=== PATIENT | female | born 1960 | race Caucasian/White ===

== ENCOUNTER 2017-02-15 17:21 | Observation (INO) | payer OTHER ==
[2017-02-15 18:23] LABS: Hematocrit 42 % (35-47); Hemoglobin 13.8 g/dl (12.0-16.0); Mean Corpuscular HGB Conc 33 g/dl (31-36); Mean Corpuscular Hemoglobin 29 pg (27-31); Mean Corpuscular Volume 90 fL (80-97); Mean Platelet Volume 9 um3 (7.4-10.4); Red Blood Count 4.69 10^6/ul (4.0-5.4); Red Cell Distribution Width 14 % (10.5-15); White Blood Count 12.9 10^3/ul (3.5-10.8)
[2017-02-15 18:46] LABS: Albumin 3.9 g/dL (3.2-5.2); BUN/Creatinine Ratio 16.7 (8-20); Calcium 9.2 mg/dL (8.6-10.3); EGFR African American 67.3 (>60); EGFR Non-African American 52.3 (>60); Globulin 3.5 g/dL (2-4); Potassium 3.7 mmol/L (3.5-5.0); Total Bilirubin 0.5 mg/dL (0.2-1.0); Total Protein 7.4 g/dL (6.4-8.9)
[2017-02-15 18:49] LABS: Troponin I 0.14 ng/mL (<0.04)
[2017-02-15] MEDS ORDERED: Pantoprazole IV* 40 MG IV ONE (18:53)
[2017-02-15] MEDS ORDERED: Sucralfate TAB* 1 GM PO ONE (18:53)
--- NOTE | 2017-02-15 19:16 | RAD ---
HISTORY: Palpitation COMPARISONS: None VIEWS: 2: Frontal dual-energy and lateral views of the chest. FINDINGS: CARDIOMEDIASTINAL SILHOUETTE: The cardiomediastinal silhouette is normal. ELI: The eli are normal. PLEURA: The costophrenic angles are sharp. No pleural abnormalities are noted. LUNG PARENCHYMA: The lungs are clear. ABDOMEN: The upper abdomen is clear. There is no subphrenic gas. BONES AND SOFT TISSUES: Degenerative changes are noted along the spine. OTHER: None. IMPRESSION: NO ACTIVE CARDIOPULMONARY DISEASE.
[2017-02-15 19:38] LABS: TSH (Thyroid Stimulating Horm) 1.54 mcIU/mL (0.34-5.60)
[2017-02-15] MEDS ORDERED: Acetaminophen TAB* 325 MG PO PRN (20:42)
[2017-02-15] MEDS ORDERED: Ondansetron INJ* 2 MG/ML VIAL IV PRN (20:42)
[2017-02-15] MEDS ORDERED: Al Hydrox/Mg Hydrox/Simet LIQ* 30 ML UDC PO PRN (20:42)
[2017-02-15] MEDS ORDERED: Nicotine Inhaler* 10 MG AMP INH PRN (20:55)
[2017-02-15] MEDS ORDERED: Mouth Piece, Nicotine* 1 EACH CARTRIDGE INH PRN (20:55)
[2017-02-15] MEDS ORDERED: Aspirin TAB* 325 MG PO ONE (20:56)
[2017-02-15] MEDS ORDERED: Potassium Chlor TAB* 20 MEQ TAB.ER PO ONE (21:02)
[2017-02-15] MEDS: Heparin VIAL(*) 5000 UNITS/ML VIAL (FIVE THOUSAND) SUBCUT SCH (21:38)
--- NOTE | 2017-02-15 22:08 | ED ---
Melita Calvert Alfonso, scribed for Luis Small MD on 02/15/17 at 1805 . HPI Cardiac - HPI Summary HPI Summary: This patient is a 56 year old female BIBA to [facility] for palpitations around 1430 today. She reports 4 episodes of her "heart racing" while at work today. The most recent episode lasted approximately 2 hours. She denies any pain. Symptoms aggravated by nothing and alleviated by spontaneous resolution. The patient reports diaphoresis and "flushed skin." Patient reports consuming less caffeine over the last few days. - History of Current Complaint Chief Complaint: EDGeneral Stated Complaint: SVT Time Seen by Provider: 02/15/17 17:34 Hx Obtained From: Patient Onset/Duration: Started Hours Ago - Earlier today, Still Present Timing: Intermittent, Lasting Hours - approximately 2 hours Initial Severity: Mild Current Severity: Mild Pain Intensity: 0 Pain Scale Used: 0-10 Numeric Character: Fast - Palpatations Aggravating Factor(s): Nothing Alleviating Factor(s): Spontaneous Resolution Associated Signs and Symptoms: Positive: Diaphoresis, Other: - Positive " flushed skin" - Allergy/Home Medications Allergies/Adverse Reactions: Allergies Allergy/AdvReac Type Severity Reaction Status Date / Time No Known Allergies Allergy Verified 07/26/15 11:13 PMH/Surg Hx/FS Hx/Imm Hx Cardiovascular History: Reports: Hx Hypertension - Surgical History Surgery Procedure, Year, and Place: 3 c-sections. screw placed in 2nd lft toe december 2014 Infectious Disease History: No Infectious Disease History: Denies: Traveled Outside the [place] in Last 30 Days - Family History Known Family History: Negative: Diabetes - Social History Alcohol Use: Occasionally Substance Use Type: Reports: None Smoking Status (MU): Heavy Every Day Tobacco Smoker Type: Cigarettes Review of Systems Positive: Skin Diaphoresis Positive: Palpitations Negative: Arthralgia - Denies any pain Positive: Other - Positive "flushed skin" All Other Systems Reviewed And Are Negative: Yes Physical Exam Triage Information Reviewed: Yes Vital Signs On Initial Exam: Initial Vitals Temp Pulse Resp BP Pulse Ox 97.7 F 98 18 145/72 98 02/15/17 17:26 02/15/17 17:26 02/15/17 17:26 02/15/17 17:26 02/15/17 17:26 Vital Signs Reviewed: Yes Appearance: Positive: Well-Appearing, No Pain Distress, Obese Skin: Positive: Warm, Skin Color Reflects Adequate Perfusion, Dry Head/Face: Positive: Normal Head/Face Inspection Eyes: Positive: Normal ENT: Positive: Normal ENT inspection Neck: Positive: Supple, Nontender Respiratory/Lung Sounds: Positive: Clear to Auscultation, Breath Sounds Present Cardiovascular: Positive: RRR Abdomen Description: Positive: Nontender, Soft Bowel Sounds: Positive: Present Musculoskeletal: Positive: Normal Neurological: Positive: Normal, Sensory/Motor Intact, Alert, Oriented to Person Place, Time, CN Intact II-III Psychiatric: Positive: Normal - [place]ana Coma Scale Coma Scale Total: 15 Diagnostics - Vital Signs Vital Signs Temp Pulse Resp BP Pulse Ox 02/15/17 17:26 97.7 F 98 18 145/72 98 - Laboratory Lab Results: Lab Results 02/15/17 02/15/17 02/15/17 Range/Units 18:15 18:15 18:15 WBC 12.9 H (3.5-10.8) 10^3/ul RBC 4.69 (4.0-5.4) 10^6/ul Hgb 13.8 (12.0-16.0) g/dl Hct 42 (35-47) % MCV 90 (80-97) fL MCH 29 (27-31) pg MCHC 33 (31-36) g/dl RDW 14 (10.5-15) % Plt Count 272 (150-450) 10^3/ul MPV 9 (7.4-10.4) um3 Neut % (Auto) 78.3 (38-83) % Lymph % (Auto) 12.4 L (25-47) % [place] % (Auto) 6.2 (1-9) % Eos % (Auto) 1.0 (0-6) % Baso % (Auto) 2.1 H (0-2) % Absolute Neuts (auto) 10.1 H (1.5-7.7) 10^3/ul Absolute Lymphs (auto) 1.6 (1.0-4.8) 10^3/ul Absolute Monos (auto) 0.8 (0-0.8) 10^3/ul Absolute Eos (auto) 0.1 (0-0.6) 10^3/ul Absolute Basos (auto) 0.3 H (0-0.2) 10^3/ul Absolute Nucleated RBC 0.01 10^3/ul Nucleated RBC % 0.1 Sodium 135 (133-145) mmol/L Potassium 3.7 (3.5-5.0) mmol/L Chloride 100 L (101-111) mmol/L Carbon Dioxide 23 (22-32) mmol/L Anion Gap 12 H (2-11) mmol/L BUN 18 (6-24) mg/dL Creatinine 1.08 H (0.51-0.95) mg/dL Est GFR ( Amer) 67.3 (>60) Est GFR (Non-Af Amer) 52.3 (>60) BUN/Creatinine Ratio 16.7 (8-20) Glucose 89 (70-100) mg/dL Lactic Acid 1.0 (0.5-2.0) mmol/L Calcium 9.2 (8.6-10.3) mg/dL Magnesium 2.0 (1.9-2.7) mg/dL Total Bilirubin 0.50 (0.2-1.0) mg/dL AST 23 (13-39) U/L ALT 17 (7-52) U/L Alkaline Phosphatase 71 (34-104) U/L Troponin I 0.14 H* (<0.04) ng/mL Total Protein 7.4 (6.4-8.9) g/dL Albumin 3.9 (3.2-5.2) g/dL Globulin 3.5 (2-4) g/dL Albumin/Globulin Ratio 1.1 (1-3) TSH 1.54 (0.34-5.60) mcIU/mL Result Diagrams: 02/15/17 18:15 02/15/17 18:15 Lab Statement: Any lab studies that have been ordered have been reviewed, and results considered in the medical decision making process. - Radiology CXR Xray Interpretation: No Acute Changes - NO ACTIVE CARDIOPULMONARY DISEASE. Radiology Interpretation Completed By: Radiologist - EKG 1215 Cardiac Rate: NL - BPM 92 EKG Rhythm: Sinus Rhythm ST Segment: Non-Specific Re-Evaluation - Re-Evaluation First Eval Re-Evaluation Time: 20:13 Comment: Discussed admission with patient and they are agreeable. Disposition - Course Course Of Treatment: Ms. Espino presented after a nearly 2 hour episode of tachycardic palpitations during which she had mild chest pressure, nausea and diaphoresis. She was found to have SVT by EMS (they brought in the strips) and given adenosine which broke it. She remained symptom and sign free here but her trop i was quite high at 0.14 and I spoke with Dr. Reyes who felt that she should stay OBV tonight. - Diagnoses Provider Diagnoses: Paroxysmal SVT (supraventricular tachycardia), Sustained SVT - Physician Notifications Discussed Care Of Patient With: Abram Reyes Time Discussed With Above Provider: 19:56 Instructed by Provider To: Other - Dr. Reyes (critical care physician) recommends the patient be admitted under a hospitalist. Dr. Lozano (hospitalist) agrees to admit the patient. Discharge - Discharge Plan Condition: Stable Disposition: ADMITTED TO [facility] The documentation as recorded by the Melita wilburn Alfonso accurately reflects the service I personally performed and the decisions made by me, Luis Small MD.
--- NOTE | 2017-02-15 22:53 | HP ---
HISTORY AND PHYSICAL: DATE OF ADMISSION: 02/15/17 TIME OF EVALUATION: 2000 hours. PRIMARY CARE PHYSICIAN: The patient does not have a primary care physician. CHIEF COMPLAINT: Palpitations. HISTORY OF PRESENT ILLNESS: This is a 56-year-old female with a past medical history of hypertension who has not been on antihypertensives for more than 3 months who states at the end of her shift at [employer], she developed palpitations with her heart racing. She states that she gets this off and on for the past year about once a month. This evening, she could not seem to break it. She has tried breaking it in the past by holding her breath or taking a nap and it usually goes away. At this time, it did not resolve. EMS was called. On EMS, the patient's heart rate was noted to be 180. She was given adenosine and this was able to break her out of her SVT. The patient states when she has her palpitations, she gets diaphoretic. She feels heart burning in her neck and her arms feel heavy. She states nothing out of the norm. No more physical labor than normal at today's shift. 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 She states she had a full workup done then and that she was told there was nothing wrong with her heart at that time. The patient states she has cut down significantly on her caffeine intake several years ago. She was at one point drinking a 30-pack of Diet Pepsi a day and now, she drinks about 3 cups of tea per day, which she drank as well today. She does have some issues with lower extremity swelling that she takes an kmkx-rgy-[id number] water pill twice a day for and she denies getting any chest pain with exertion. No shortness of breath. She has a chronic cough with postnasal drip. She has been trying to lose weight and decrease in her calorie intake. Otherwise, no nausea or vomiting. No abdominal pain. No diarrhea. Otherwise, remaining review of systems negative. In the emergency room, the patient had labs and imaging. Cardiology was contacted and recommended overnight observation. PAST MEDICAL HISTORY: 1. Hypertension, off medications for more than 3 months. 2. Tobacco use. 3. Morbid obesity. MEDICATIONS: 1. Benadryl at bedtime for her postnasal drip. 2. The patient takes an [id number]-[id number] water pill twice a day. ALLERGIES: No known drug allergies. FAMILY HISTORY: Both of her parents are alive and healthy. Her father is still working at age 79. Her mother is recently retired. No history of early coronary artery disease. SOCIAL HISTORY: The patient lives at home with her . She smokes a pack per day for a total of 25 years. She has been cutting back on her alcohol to decrease her calorie intake and has not been drinking recently. She has 2 stepchildren at home, ages 13 and 15. As mentioned, she works at [employer]. Code status is full code. REVIEW OF SYSTEMS: A 10-point review of systems were reviewed as mentioned in the HPI. PHYSICAL EXAMINATION GENERAL: In no acute distress, resting comfortably. VITAL SIGNS: Temp 97.7, pulse rate is 90, respiratory rate is 19, oxygen saturation 92% on room air, and blood pressure 144/80. HEENT: Pupils equal, and reactive to light. Head is normocephalic. Oropharynx : Mucous membranes moist. No erythema or exudate. NECK: Supple. No lymphadenopathy. RESPIRATORY: Diminished breath sounds. Prolonged expiratory phase. No wheezes , rhonchi, or rales. Intermittent cough with deep breathing. CARDIAC: Regular rate and rhythm. No murmurs, rubs, or gallops. ABDOMEN: Soft, nontender, and nondistended. EXTREMITIES: Trace pretibial edema, +1 DP. NEUROLOGIC: Alert and oriented x3 with no focal neurologic deficits. DERM: No lesions or rashes. DIAGNOSTIC STUDIES/LAB DATA: White count 12.9, hemoglobin 13.8, hematocrit 42 , and platelets 272. Sodium 135, potassium 3.7, chloride 100, bicarb 23, BUN 18 , and creatinine 1.08. Troponin 0.14. TSH 1.54. Magnesium 2. Radiographic data: Chest x-ray; no active cardiopulmonary disease. EKG shows normal sinus rhythm. ASSESSMENT: This is a 56-year-old female with a past medical history of morbid obesity; hypertension, off antihypertensives; and tobacco use who presents to the emergency room with supraventricular tachycardia, improved with adenosine. 1. Supraventricular tachycardia: Assessment: The patient has had this off and on for several years. It seems this past year, it has been occurring monthly. She has cut back down on her caffeine intake. She is a heavy smoker and stopped her antihypertensive medications. She does get heartburn symptoms when the supraventricular tachycardia occurs. The concern is elevated troponin, although it could be in the setting of her supraventricular tachycardia and not secondary to ischemia. I did speak with Dr. Reyes who agrees with overnight observation. Plan: We will continue to trend her troponin, obtain a lipid panel, and he recommends starting her on a low-dose diltiazem, which can be converted over to a daily dosing at discharge. She needs to be set up with a primary care physician as well. We will give her a dose of potassium and start her on aspirin as well. If she is still here in 2 days, we will put in for an echocardiogram to be done. We will also repeat her BMP in the morning as well to follow her potassium and her creatinine, which appears to be fairly elevated at 1.08. 2. Tobacco use: We will order nicotine inhaler. 3. FEN: We will place her on a heart-healthy, low-sodium, and caffeine-free diet. 4. DVT prophylaxis: Moderate risk. Place her on heparin subcu t.i.d. 5. Code status: Full code. PATIENT TIME: Greater than 60 minutes was spent doing the history and physical , more than half the time was spent in direct patient contact. [id number]/CPS #: [id number] JUWAN
[2017-02-16] MEDS: Heparin VIAL(*) 5000 UNITS/ML VIAL (FIVE THOUSAND) SUBCUT SCH (05:20)
[2017-02-16 05:53] LABS: BUN/Creatinine Ratio 21.9 (8-20); Calcium 8.8 mg/dL (8.6-10.3); EGFR African American 105.7 (>60); EGFR Non-African American 82.2 (>60); HDL Cholesterol 42.3 mg/dL; Potassium 3.8 mmol/L (3.5-5.0)
[2017-02-16 06:01] LABS: Troponin I 0.22 ng/mL (<0.04)
[2017-02-16] MEDS ORDERED: Aspirin EC Low Dose* 81 MG TAB.EC PO SCH (09:00)
[2017-02-16] MEDS ORDERED: Diltiazem TAB* 30 MG PO ONE (10:51)
[2017-02-16 12:12] VITALS: BP 148/81
--- NOTE | 2017-02-16 12:22 | PN ---
Subjective Date of Service: 02/16/17 Interval History: Ms. Espino states that she is feeling quite well. She denies further feelings of palpitations and no symptoms of chest pressure or tightness. Objective Active Medications: Acetaminophen (Tylenol Tab*) 650 mg PO Q4H PRN Al Hydrox/Mg Hydrox/Simethicone (Maalox Plus*) 30 ml PO Q6H PRN Aspirin (Aspirin Ec Low Dose*) 81 mg PO DAILY ADINA Device (Nicotine Mouth Piece*) 1 each INH .USE WITH NICOTROL PRN Heparin Sodium (Porcine) (Heparin Vial(*)) 5,000 units SUBCUT Q8HR ADINA Nicotine (Nicotine Inhaler*) 10 mg INH Q2H PRN Ondansetron HCl (Zofran Inj*) 4 mg IV Q4H PRN Vital Signs 02/15/17 02/16/17 02/16/17 21:24 00:39 04:05 Temperature 98.3 F 97.6 F 97.9 F Pulse Rate 82 69 77 Respiratory 16 16 16 Rate Blood Pressure 155/80 128/71 125/75 (mmHg) O2 Sat by Pulse 94 92 93 Oximetry 02/16/17 02/16/17 02/16/17 07:37 07:42 11:58 Temperature 98.0 F 99.0 F Pulse Rate 73 81 Respiratory 16 16 16 Rate Blood Pressure 143/77 148/81 (mmHg) O2 Sat by Pulse 94 94 Oximetry Result Diagrams: 02/15/17 18:15 02/16/17 05:17 Additional Lab and Data: Lab Results 02/15/17 02/15/17 02/15/17 Range/Units 18:15 18:15 18:15 WBC 12.9 H (3.5-10.8) 10^3/ul RBC 4.69 (4.0-5.4) 10^6/ul Hgb 13.8 (12.0-16.0) g/dl Hct 42 (35-47) % MCV 90 (80-97) fL MCH 29 (27-31) pg MCHC 33 (31-36) g/dl RDW 14 (10.5-15) % Plt Count 272 (150-450) 10^3/ul MPV 9 (7.4-10.4) um3 Neut % (Auto) 78.3 (38-83) % Lymph % (Auto) 12.4 L (25-47) % [place] % (Auto) 6.2 (1-9) % Eos % (Auto) 1.0 (0-6) % Baso % (Auto) 2.1 H (0-2) % Absolute Neuts (auto) 10.1 H (1.5-7.7) 10^3/ul Absolute Lymphs (auto) 1.6 (1.0-4.8) 10^3/ul Absolute Monos (auto) 0.8 (0-0.8) 10^3/ul Absolute Eos (auto) 0.1 (0-0.6) 10^3/ul Absolute Basos (auto) 0.3 H (0-0.2) 10^3/ul Absolute Nucleated RBC 0.01 10^3/ul Nucleated RBC % 0.1 Sodium 135 (133-145) mmol/L Potassium 3.7 (3.5-5.0) mmol/L Chloride 100 L (101-111) mmol/L Carbon Dioxide 23 (22-32) mmol/L Anion Gap 12 H (2-11) mmol/L BUN 18 (6-24) mg/dL Creatinine 1.08 H (0.51-0.95) mg/dL Est GFR ( Amer) 67.3 (>60) Est GFR (Non-Af Amer) 52.3 (>60) BUN/Creatinine Ratio 16.7 (8-20) Glucose 89 (70-100) mg/dL Lactic Acid 1.0 (0.5-2.0) mmol/L Calcium 9.2 (8.6-10.3) mg/dL Magnesium 2.0 (1.9-2.7) mg/dL Total Bilirubin 0.50 (0.2-1.0) mg/dL AST 23 (13-39) U/L ALT 17 (7-52) U/L Alkaline Phosphatase 71 (34-104) U/L Troponin I 0.14 H* (<0.04) ng/mL Total Protein 7.4 (6.4-8.9) g/dL Albumin 3.9 (3.2-5.2) g/dL Globulin 3.5 (2-4) g/dL Albumin/Globulin Ratio 1.1 (1-3) TSH 1.54 (0.34-5.60) mcIU/mL Assess/Plan/Problems-Billing Assessment: Ms. Espino is a 56 yo female with a PMH of SVT and hypertension who was admitted on 02/15/17 with palpitations and elevated troponin. - Patient Problems (1) SVT (supraventricular tachycardia) Comment: Resolved. Appreciate cardiology consult. Plan to start low dose diltiazem. Patient to follow up closely with Dr. Reyes as per below. (2) Elevated troponin Comment: Trop peaked at 0.25. Suspect secondary to prolonged SVT. Appreciate recommendation from Dr. Reyes with plan for outpatient stress test and echo. Patient to not return to work until testing is completed. (3) Hypertension Comment: SBP 120-150s. Starting diltiazem as per above. (4) DVT prophylaxis Comment: Heparin SQ. (5) Full code status Status and Disposition: OBV. Discharge to home.
--- NOTE | 2017-02-16 14:40 | CONS ---
CC: Dr. Samantha Oscar. DATE OF CONSULT: PATIENT OF: Dr. Samantha Oscar. REQUESTING PHYSICIAN: Dr. Zonia Lozano. REASON FOR EVALUATION: SVT, troponin elevation. HISTORY OF PRESENT ILLNESS: This is a very pleasant 56-year-old woman with a longstanding history of palpitations. She reports that about 10 or 15 years ago , she presented to emergency room with a fast heart rate, was found to have a rhythm problem which was treated with medication. She does not remember being told if there is SVT or not, but apparently had an evaluation in [place] and was told that her heart was okay. She says since then she has had episodes of fast heart beat about once a year, which usually she can break with bearing down. About 5 years ago, she was started on lisinopril, hydrochlorothiazide for hypertension. She stopped taking it about 4 months ago. She said over the last 3 or 4 months, she has had increased frequency of her episodes of palpitations occurring about once a month. She said that one episode occurred in the evening and she could not break it and she went off to bed and it resolved while she was asleep. She says sometimes when she gets these episodes , she will be weak, lightheaded but not usually sweaty. She said that yesterday she was at work towards the end of the shift at [employer]. She noticed she was walking short distances cleaning up her work spot and she noticed that her heart was racing and she started to feel sweaty and week and then sat down. She continued to be sweaty and had some pressure in her throat as if it was heartburn. She said that she sat for about an hour and a half refusing assistance until about an hour into the episode when she agreed to have an EMT look at her, they noted the fast heart rate of 160 and called paramedics. In the ambulance, she was given adenosine for SVT and converted to sinus rhythm. I do not have the strips, that was the report from the admission note and from the ER physician. She was started on short-acting Cardizem last night and had no further episodes and is feeling well this morning. She did say that in the past she has had some burning in her throat and sweatiness but to a lesser degree. She says her indigestion symptoms usually resolve with Tums and she had some improvement last night with taking Tums. She denies syncope, strokes, ministrokes, diarrhea. She has had history of using fair amount of caffeinated beverages in the past. More recently she has about 10 to 20 ounces of Pepsi on occasion and had a half of 20-ounce Pepsi yesterday. She also drinks two 16-ounce glasses of ice tea a day. She does not exercise regularly but works her shifts without getting chest pain or shortness of breath. She also walks about 3 or 4 minutes from the parking lot to work without getting symptoms. She goes up and down flight of stairs at home without getting chest pain. She said she has had surgery on her left foot about a year and a half ago and had some knee discomfort with climbing steps and she walks slowly. She has also gained 50 pounds over the last 2 years since her foot injury. PAST MEDICAL HISTORY: Includes hypertension, not complying with medicines for the last 4 to 5 months. Palpitations dating back 10 to 15 years, suspected SVT based on her history and recent documentation of SVT. History of tobacco use 20 -pack a day recently and lifetime 25-pack year history. She has postnasal drip with chronic cough. History of gastroesophageal reflux, obesity. She denies hyperlipidemia. PAST SURGICAL HISTORY: Includes , left foot surgery. ALLERGIES: She has no known allergies. FAMILY HISTORY: Includes, her father is 79, alive and well. A mother who has a history of rheumatic heart disease and had a valve replaced, she is alive at 77. She has a brother and a sister, alive and well. No premature coronary disease. SOCIAL HISTORY: She is to her third . Her second few years ago. She has 2 young children living with her, teenagers and 2 adult children and 1 step-daughter. The 2 children living with her are 13 and 15. She has not had an alcoholic beverage in 4 days but drinks 1 or 2 alcoholic beverages a night. REVIEW OF SYSTEMS: Negative except as above. She does report knee discomfort and discomfort in her foot where she had the foot surgery. PHYSICAL EXAM: She is a well-developed, obese female. No apparent distress. Blood pressure 143/77, pulse is 73. No significant JVD. Carotids 2+ without bruits. No cervical adenopathy or thyromegaly. Extraocular muscles intact. Sclerae anicteric. Cardiac: S1, S2. No murmurs, gallops or rubs. Chest was clear. No CVAT. Abdominal Exam: Obese. Exam limited due to obesity. No hepatosplenomegaly. Femoral pulse intact without bruits. Distal pulse intact. No edema. Motor strength 5/5. Deep tendon reflexes are 2/4 in upper extremities, unable to elicit in the lower extremities. DIAGNOSTIC STUDIES/LAB DATA: EKG from yesterday and today revealed sinus rhythm with no significant changes. Chest x-ray by report revealed no active cardiopulmonary disease. Laboratories include, potassium 3.7 yesterday, 3.8 today. Troponin of 0.14 yesterday, 0.25 at 1 a.m. this morning and 0.22 this morning. TSH normal, 1.54. Cholesterol 166, BUN is 16, creatinine of 0.74. White count 12.9, hemoglobin at 13.8, platelet count of 272. IMPRESSION: My impression is that Mrs. Espino has hypertension, obesity, tobacco use and suspected history of supraventricular tachycardia, now with an episode of supraventricular tachycardia associated with diaphoresis, weakness and throat discomfort. She also has mild elevation of troponins. I suspect that her troponin elevation is due to demand ischemia after prolonged episode of narrow complex tachycardia; however she may also be developing small vessel disease or coronary artery disease given her risk factors. PLAN/RECOMMENDATIONS: I did discuss at length with her the findings and my recommendations include the followin. I strongly recommend that she avoid dehydration and avoid hypokalemia. 2. I would replace her potassium, maintain potassium over 4. 3. I would start Cardizem 120 mg a day and follow for control of her blood pressure and SVT. Hopefully, this will be more effective at decreasing the likelihood of SVT and without causing hypokalemia. 4. I would avoid lisinopril, hydrochlorothiazide for now. 5. I did strongly recommend she discontinue tobacco use. Ideally, I would like to see her lose weight and exercise regularly. Consider a referral for dietary program and exercise program cater to her musculoskeletal issues. I explained that caffeine and alcohol can increase her likelihood for arrhythmia and advised her to cut down on both. I did suggest that we evaluate her further with an echo and a stress test to make sure that her LV function is normal and that she is unlikely to have significant ischemia. She is limited by musculoskeletal issues and is able to go up and down the stairs and walk 3 to 5 minutes in the parking lot without problems at baseline. I suspect that if we can ambulate her about the tirado here on her medicines and she is asymptomatic, we could consider obtaining an outpatient evaluation with stress testing. I discussed the case with Fabi and the patient and I have asked her to ambulate around here. If she is pain free, then I think she could be discharged home but I asked her to refrain from returning to work until she has her stress test next week. I would replace her potassium, try to maintain it over 4. If she has persistent SVT despite medications and lifestyle changes, we could consider referral for EP evaluation and ablation. I did explain to her that if she cannot terminate an episode quickly, she needs to get medical attention given the potential for decompensation, infarct and . [id number]/CPS #: [id number] JUWAN
[2017-02-16] MEDS ORDERED: Diltiazem TAB* 30 MG PO SCH (21:02)
--- NOTE | 2017-02-17 02:16 | DS ---
HOSPITAL MEDICINE DISCHARGE SUMMARY: DATE OF ADMISSION: 02/15/17 DATE OF DISCHARGE: 02/16/17 ATTENDING PHYSICIAN: Dr. Grisel Gaston *(dictation provided by Fabi John NP) PRIMARY DIAGNOSES: 1. Palpitations with supraventricular tachycardia. 2. Elevated troponin. SECONDARY DIAGNOSES: 1. Hypertension, off medication recently. 2. Tobacco abuse. 3. Morbid obesity. MEDICATIONS AT THE TIME OF DISCHARGE: Benadryl 120 mg p.o. daily. HOSPITAL COURSE: Ms. Espino is a 56-year-old female with past medical history of hypertension and palpitations who presented to the hospital on 02/15/17 with concerns of palpitation. Please see the dictated H and P from Zonia Lozano MD for complete details. In brief, the patient reported that she had a history of elevated heart rate with palpitations in the past though they had normally broken by holding her breath or taking a nap. When her palpitations did not resolve with these efforts, she called EMS and was found to have heart rate in the 180s. She was given adenosine which was successful in breaking her sinus ventricular tachycardia. Ms. Espino was observed in the hospital overnight. She had no further episodes of SVT. Her labs showed troponin elevation with a peak of 0.25. This is suspected to be secondary to demand ischemia with an elevated heart rate to greater than 180. She did see Cardiology and I appreciate Dr. Reyes's recommendations. He suggested that the patient should go on diltiazem CD 120 mg p.o. daily, which has been initiated today. He notes that her troponins are elevated and thinks that she should have further workup outpatient with transthoracic echocardiogram and nuclear medicine stress test. The patient is advised not to return to work or to engage in any heavy activity, aerobic or lifting activity until she follows up with him. The patient has been ambulated on our unit when she has no palpitations and no discomfort suggestive of cardiac ischemia. Ms. Espino is medically stable for discharge to home, but with plans for close followup with Dr. Reyes. DISPOSITION: Home. DIET: Low fat, low salt. ACTIVITY: As tolerated. FOLLOWUP PLANS: Please follow up with Dr. Reyes for stress test and echocardiogram early next week. TIME SPENT: Approximately 60 minutes were spent on the discharge of this patient, more than half that time was spent with the patient at the bedside reviewing the events leading up to this hospitalization, performing the physical examination, and reviewing plan of care. FABI JOHN NP [id number]/[facility] #: [id number] JUWAN
[2017-02-17] MEDS ORDERED: Diltiazem TAB* 30 MG PO ONE (10:31)
== END 2017-02-16 13:45 | disposition home or self-care (01) ==
LOC: ED 17:21 → MEDTELE 20:42
PROVIDERS: ADMIT Pediatrics; ATTEND Hospitalist
DX: I47.1 Supraventricular tachycardia (principal); R00.2 Palpitations; I10 Essential (primary) hypertension; F17.210 Nicotine dependence, cigarettes, uncomplicated; E66.01 Morbid (severe) obesity due to excess calories; R74.8 Abnormal levels of other serum enzymes
CPT/HCPCS: 36415; 71020; 80048; 80053; 80061; 83605; 83735; 84443; 84484; 85025; 93005; 96372; 96374; 99283; A9270-GY; G0378; J1644